=== PATIENT | female | born 1930 | race Caucasian/White ===

== ENCOUNTER → 2017-12-18 | Outpatient (CLI) | payer OTHER ==
[~2017-12-18] MED LIST: ACTONEL PO; ALBUTEROL2.5 MG/31 INH; ARTIFICIAL TEAR15 M3 OPHTHALMIC; ASPIRIN PO; ASPIRIN81 M2 PO; CALCIUM 500 +1 EAC4 PO; CENTRUM SILVER1 EAC1 PO; CENTRUM SILVER1 EAC4 PO; CENTRUM SILVER1 EACH PO; COLACE100 MG PO; COUMADIN; COUMADIN 2.5MG2.5 M1 PO; COUMADIN 5 MG TA5 M1 PO; COUMADIN PO; DEMADEX20 MG PO; EVISTA PO; IBUPROFEN200 MG PO; IRON325 PO; LEVOTHROID50 MCG PO; LEVOTHYROXIN0.025 MG PO; LEVOTHYROXINE0.05 MG PO; LOVENOX SC; MEGESTROL PO; METRONIDAZOLE45 G1; MIACALCIN; MIACALCIN NS; MIDODRINE HCL10 MG PO; MIDODRINE HCL2.5 M1 PO; MUCINEX TA600 MG/TA1 PO; MULTAQ400 MG PO; OMEPRAZOLE 20 M20 M1 PO; PANTOPRAZOLE SO40 M1 PO; PERCOCET 5-3251 EACH PO; PLAVIX 75 MG TA75 MG PO; POTASSIUM20 PO; PROLIA60 MG/1 ML SUBQ; SIMVASTATIN PO; SIMVASTATIN20 MG PO; TENORMIN25 MG PO; TENORMIN50 MG PO; THYROID PO; TOPROL XL25 MG PO; TOPROL XL50 MG PO; TRAMADOL 50 MG50 MG PO; TUMS CHEWA500 MG/11 PO; TUMS DUAL ACTI1 EACH PO; TYLENOL EX-STR500 M2 PO; TYLENOL EXTRA500 MG PO; VITAMIN D-32000 UNIT PO; ZOCOR 20 MG TAB20 M1 PO
== END ==
LOC: RAD 15:20
DX: Z01.818 Encounter for other preprocedural examination (principal); I51.7 Cardiomegaly; M20.41 Other hammer toe(s) (acquired), right foot; Z95.0 Presence of cardiac pacemaker

== ENCOUNTER 2019-01-19 13:40 | Emergency (ER) | payer OTHER ==
[~2019-01-19] VITALS: Ht 162.6 cm; Wt 41.7 kg
[2019-01-19 15:11] LABS: HEMATOCRIT 33.9 % (37.0-47.0); HEMOGLOBIN 11.7 gm/dL (12.0-15.0); MCH 38.5 pg (26.0-34.0); MCHC 34.5 g/dL (28.0-37.0); MCV 111.6 fL (80.0-100.0); PLATELET COUNT 148 thou/uL (150-400); RBC 3.04 mil/uL (4.20-5.00); RDW 14.3 % (10.5-14.5); WBC 3.4 thou/uL (4.0-11.0)
[2019-01-19 15:14] LABS: ANION GAP 5 mmol/L (7-16); BUN 29 mg/dL (7-18); CALCIUM 9.5 mg/dL (8.5-10.1); CHLORIDE 99 mmol/L (98-107); CO2 29 mmol/L (21-32); CREATININE 1.1 mg/dL (0.6-1.0); GLUCOSE 129 mg/dL (74-106); POTASSIUM 3.6 mmol/L (3.5-5.1); SODIUM 133 mmol/L (136-145)
[2019-01-19 15:23] LABS: TROPONIN-I <0.06 ng/mL (<0.06)
[2019-01-19 15:39] LABS: ABSOLUTE NEUTROPHILS 2.5 thou/uL (1.4-8.2)
[2019-01-19 15:40] LABS: MACROCYTES 1+
[2019-01-19] MEDS ORDERED: DOXYCYCLINE 10100 MG PO (16:27)
[2019-01-19] MEDS ORDERED: LEVOXYL75 MCG PO (16:37)
[2019-01-19 16:51] VITALS: BP 109/91
--- NOTE | 2019-01-19 21:16 | EKG ---
[place] [address] [facility] [address] [address] ELECTROCARDIOGRAM REPORT Name: ELIZABETH ALEXANDER Meri Room #: DEP [facility]#: [id number] ������������������ Admission: 01/19/19 ������������������ Attend Phys: Discharge: 01/19/19 ������������������ Date of : [birth year] Report #: [id number] ����������������������������������������������������������������� [id number] THIS REPORT FOR: //name// [facility] ED Test Date: 2019-01-19 Test Time: 14:10:04 Pat Name: ELIZABETH ALEXANDER Department: Room: Gender: F Marketing Ambassador: FARZAD : 1930 Requested By: Fany Szymanski Order Number: [id number] MD: Cory Fierro Measurements Intervals [place] Rate: 70 P: [place]: QRS: 217 QRSD: 147 T: 101 QT: 384 QTc: 415 Interpretive Statements Afib/flutter and ventricular-paced rhythm No further analysis attempted due to paced rhythm Compared to ECG 07/10/2016 17:35:59 No significant changes Electronically Signed On 01-19-2019 21:16:29 CDT by Cory Firero [email or web address] ��������������������������������������������� <ELECTRONICALLY SIGNED> ���������������������������������������� By: Cory Fierro MD ��������������������������������������������� 01/19/192115 1410 141 Cory Fierro MD /EPI
== END 2019-01-19 16:51 | disposition home or self-care (01) ==
LOC: ER 13:40
PROVIDERS: Emergency Medicine
DX: J40 Bronchitis, not specified as acute or chronic (principal); I48.91 Unspecified atrial fibrillation; E78.00 Pure hypercholesterolemia, unspecified; E03.9 Hypothyroidism, unspecified; J44.9 Chronic obstructive pulmonary disease, unspecified; I10 Essential (primary) hypertension; M81.0 Age-related osteoporosis without current pathological fracture; M19.90 Unspecified osteoarthritis, unspecified site; Z95.5 Presence of coronary angioplasty implant and graft; Z90.721 Acquired absence of ovaries, unilateral; Z87.01 Personal history of pneumonia (recurrent); Z87.891 Personal history of nicotine dependence